=== PATIENT | female | born 1980 | race Caucasian/White ===

== ENCOUNTER 2023-01-05 08:53 | Outpatient (CLI) | payer OTHER, SELFPAY ==
--- NOTE | ~2023-01-05 | MM_ITS ---
EXAMINATION: MM screening michele BI w giuliana HISTORY: Screening mammogram TECHNIQUE: Craniocaudal and mediolateral oblique 3-D tomosynthesis images were obtained and synthetic 2-D images were generated. Bilateral rotated lateral CC views. CAD analysis was submitted and interp reted. COMPARISON: No prior mammogram is available for comparison at this institution. BREAST PARENCHYMAL COMPOSITION: The breasts are heterogeneously dense, which may obscure small masses . FINDINGS: There is no evidence of suspicious mass, calcification, or architectural distortion to sugg est malignancy in either breast. There has been no suspicious interval change. IMPRESSION: 1. No mammographic evidence of malignancy. 2. Recommend routine screening mammography in one year. BI-RADS Category 1: Negative Reviewed, dictated and finalized at location A. START ASSISTANT TEACHER
== END 2023-01-05 08:54 | disposition home or self-care (01) ==
LOC: ANHIMG 08:59
PROVIDERS: Visit Provider Student in an Organized Health Care Education/Training Program
DX: Z12.31 Encounter for screening mammogram for malignant neoplasm of breast (principal)
CPT/HCPCS: 77063; 77067

== ENCOUNTER 2023-01-05 09:57 | Emergency (ER) | payer OTHER, SELFPAY ==
--- NOTE | ~2023-01-05 | XR_ITS ---
Right wrist Technique: PA, oblique, lateral, and ulnar deviation views were obtained. Clinical History: Pain Findings: No acute fracture or dislocation is seen. Osseous alignment is anatomic. Joint spaces are p reserved. Soft tissues are unremarkable. Impression: Unremarkable right wrist radiographs. Reviewed, dictated and finalized at location . LOPMENT DISABILITY SPECIALIST Impression: Unremarkable right wrist radiographs.
[2023-01-05 10:07] VITALS: BP 107/75; PULSE 67; RESP 16; TEMP 36.8; O2SAT 100
--- NOTE | 2023-01-05 10:15 | ED.UPPEXIN ---
HPI - Extremity Injury (Upper) General Chief Complaint: Extremity Injury, Upper Stated Complaint: rt wrist/hand injury Time Seen by Provider: 01/05/23 10:27 Source: patient and RN notes reviewed Mode of arrival: ambulatory Limitations: no limitations History of Present Illness HPI narrative: 42-year-old female presents concern for wrist pain. Reports 6 weeks ago she fell while ice skating injuring her right wrist. Reports her and then the pain increased again recently. Reports she has been using a splint intermittently, occasionally taking ibuprofen and using ice. She reports pain hurts when gripping or moving digits 4 and 5. She denies any swelling, bruising, redness, warmth. MD complaint: injury to: right and wrist Related Data Allergies Allergy/AdvReac Type Severity Reaction Status Date / Time No Known Allergies Allergy Mild Verified 01/05/23 10:05 Review of Systems Review of Systems: CONSTITUTIONAL: Denies malaise, chills, sweats, or fever. SKIN: Denies rash or itching, open skin, laceration, abrasion, redness, warmth, swelling. MUSCULOSKELETAL: Reports right wrist pain NEUROLOGIC: Denies numbness, weakness All systems reviewed & are unremarkable except as noted in HPI and below PMFSH Past Medical History Medical History Abnormal Pap smear of cervix ASCUS NEG HPV 2008 Screening breast examination Social History Social History (Updated 10/31/22 @ 09:31 by Yumiko Galindo [facility]) Smoking status: Never smoker Alcohol intake: current Alcohol use details: social Substance use: never Living arrangements: with family Occupation/Education: occupation Gender identity (if verbalized by the patient): Female Sexual Orientation (if Verbalized by the Patient): Straight or Heterosexual Comments At time of signature, agree with nursing past medical, surgical, social and family history. There is no relevant family history pertinent to the presenting complaint Exam Narrative: GENERAL: Well-appearing, well-nourished, and in no acute distress. HEAD: Normocephalic, atraumatic. EYES: PERRLA, conjunctivae clear NECK: Supple. CHEST: Speaks in full sentences. No respiratory distress. HEART: Regular rate and rhythm. Normal and equal peripheral pulses. EXTREMITIES: Right wrist, hand, digits have normal strength and sensation, normal range of motion. No edema or ecchymosis. 5/5 strength with digit flexion and extension. Normal sensation with sensitivity to light touch and pain. No point tenderness. No open wounds, no skin tenting, no devitalized tissue or atrophy, no trophic changes, no obvious deformity, alignment normal, nearby joints and structures intact. Distal pulses palpable and equal bilaterally, skin warm, dry, pink. Capillary refill less than 3 seconds. SKIN: Warm, dry, no rash. NEURO: Alert and oriented x3. PSYCH: Normal mood and affect Course Course Emergency Course: Patient is aware of diagnosis, understands and agrees to treatment plan. Anticipatory guidance given. Patient agrees to follow-up as directed and is aware of reasons to seek care at the emergency department. Portions of this record may have been created with voice recognition software Level of Care: Express Care Visit Vital Signs Vital signs: Vital Signs Temperature 98.3 F 01/05/23 10:07 Pulse Rate 67 01/05/23 10:07 Respiratory Rate 16 01/05/23 10:07 Blood Pressure 107/75 01/05/23 10:07 Pulse Oximetry 100 01/05/23 10:07 Temperature 98.3 F 01/05/23 10:07 Pulse Rate 67 01/05/23 10:07 Respiratory Rate 16 01/05/23 10:07 Blood Pressure 107/75 01/05/23 10:07 Pulse Oximetry 100 01/05/23 10:07 Reviewed. MDM - Extremity Injury (Upper) MDM Narrative Medical decision making narrative: Patients injury and pain is consistent with musculoskeletal etiology. No signs of neurological or vascular compromise on exam. Compartments and tissues are soft without
== END 2023-01-05 10:43 | disposition home or self-care (01) ==
PROVIDERS: Emergency Provider Nurse Practitioner
DX: S63.501A Unspecified sprain of right wrist, initial encounter (principal); S66.911A Strain of unspecified muscle, fascia and tendon at wrist and hand level, right hand, initial encounter; W19.XXXA Unspecified fall, initial encounter; Y93.21 Activity, ice skating
CPT/HCPCS: 73110; 99213; G0463

== ENCOUNTER 2025-04-02 15:18 | Outpatient (CLI) | payer BC, SELFPAY ==
--- NOTE | ~2025-04-02 | MM_ITS ---
EXAMINATION: MM screening michele BI w giuliana HISTORY: Screening TECHNIQUE: Craniocaudal and mediolateral oblique 3-D tomosynthesis images were obtained and synthetic 2-D images were generated. CAD analysis was submitted and interpreted. COMPARISON: 01/05/2023 BREAST PARENCHYMAL COMPOSITION: Dense: The breasts are heterogeneously dense, which may obscure small masses FINDINGS: There is no evidence of suspicious mass, calcification, or architectural distortion to sugg est malignancy in either breast. There has been no suspicious interval change. IMPRESSION: 1. No mammographic evidence of malignancy. 2. Recommend routine screening mammography in one year. BI-RADS Category 1: Negative Reviewed, dictated and finalized at location A.
--- OUTSIDE RECORDS SUMMARY | 2025-04-02 15:26 | XMS_ITS | Clinical Summary ---
Author Organization [facility] Address [address] [place] [address] Care Team Providers Care Section Supervisor Name Role Phone Carlton Egan MD Primary Care Provider [phone] Allergies Active Allergy Reactions Criticality Noted Date Comments Seasonal Unknown 03/15/2012 Medications No known medications Active Problems No known active problems Immunizations Immunization Administration Dates Next Due Dtap (Generic) 04/25/1984, 0,06/04/1979,04/05/1979,1978 Influenza Adult (Generic) 09/01/2020,10/07/2019 MMR (Generic) 07/08/1993,10/16/1980 Opv 04/25/1984, 0,06/04/1979,04/05/1979,1978 Td 07/08/1993 Social History Tobacco Use Types Packs/Day Years Used Date Smoking Tobacco: Never Smokeless Tobacco: Never Tobacco Cessation:Counseling Given: Not Answered Alcohol Use Standard Drinks/Week Comments Yes 0 (1 standard drink = 0.6 oz pur e alcohol) socially PHQ-2 Answer Date Recorded PHQ-2 Score - If the patient scores above 3, please move on to questions 3-9 0 10/25/2022 Comments No Sex and Gender Information Value Date Recorded Sex Assigned at Not on file Legal Sex Female 5:53 PM CDT Gender Identity Not on file Sexual Orientation Not on file Last Filed Vital Signs Vital Sign Reading Time Taken Comments Blood Pressure 98/70 10/25/2022 9:04 AM TRAILER BODY ASSEMBLER Pulse 77 10/25/2022 8:28 AM TRAILER BODY ASSEMBLER Temperature 36.7 C (98 F) 10/25/2022 8:28 AM TRAILER BODY ASSEMBLER Respiratory Rate 16 10/25/2022 8:28 AM TRAILER BODY ASSEMBLER Oxygen Saturation 97% 10/25/2022 8:28 AM TRAILER BODY ASSEMBLER Inhaled Oxygen Concentration - - Weight 60.8 kg (134 lb) 10/25/2022 8:28 AM TRAILER BODY ASSEMBLER Height 161.3 cm (5' 3.5 ) 10/25/2022 8:28 AM TRAILER BODY ASSEMBLER Body Mass Index 23.36 10/25/2022 8:28 AM TRAILER BODY ASSEMBLER Plan of Treatment Health Maintenance Due Date Last Done Comments Cervical Cancer Screening Pap Smear (Age 30 to 64) Every 3 Years 1978 Colorectal Cancer Screening Colonoscopy (10 Years) 1978 Annual Physical 1981 DTaP, Tdap and Td Vaccines (6 - Tdap) 07/09/1993 07/08/1993, 04/25/1984, 06/11/1980, Additional history exists Hepatitis C 1996 Hepatitis B Vaccines (1 of 3 - 19+ 3-dose series) 1997 Cervical Cancer Screening Pap with HPV Testing (Age 30 to 64) Every 5 Years 2008 Cervical Cancer Screening with HPV 2008 Mammogram Screening 2018 COVID-19 Vaccine (2023- season) 2024 PHQ-2 (Physician [place]) 11/27/2024 Meningococcal B Vaccine Aged Out No l onger eligible based on patient's age to complete this topic Meningococcal Vaccine Aged Out No carlos valentin eligible based on patient's age to complete this topic Pneumococcal Vaccine: Pediatrics (0 to 5 Years) and At-Risk Patients (6 to 49 Years) Aged Out No longer eligible based on patient's age to complete this topic RSV Immunizations Under 20 Months Aged Out No longer eligible based on patient's age to complete this topic Care Teams Section Supervisor Relationship Specialty [place] [address] [place] [address] PCP - General FAMILY PRACTICE 04/05/23
--- OUTSIDE RECORDS SUMMARY | 2025-04-02 15:26 | XMS_ITS | Clinical Summary ---
Author Organization [facility] Address [address] [place] [address] Care Team Providers Care Oracle Application Architect Name Role Phone Unavailable Primary Care Provider Unavailabl e Source Comments [facility],non-owned Affiliates and Associated Physician Practices is amultiple site organization consisting of ambulatory clinics and hospital sitesin [place], [place], [place] and [place]. This disclosure is being madepursuant to the Care Everywhere program and may not contain all information available regarding this patient. Last updated 18.[facility] [employer] Social History Tobacco Use Types Packs/Day Years Used Date Smoking Tobacco: Never Assessed Comments Unknown Sex and Gender Information Value Date Recorded Sex Assigned at Not on file Legal Sex Female 11:28 AM CDT Gender Identity Not on file Sexual Orientation Not on file Plan of Treatment Health Maintenance Due Date Last Done Comments COLOGUARD (AGES 45-75) - COL ON CA SCREENING 1978 COLON MONITORING 1978 COLONOSCOPY - COLON CA SCREENING 1978 CT COLONOGRAPHY - COLON CA SCREENING 1978 Colorectal Cancer Screening 1978 FIT - COLON CA SCREENING 1978 FLEX SIG - COLON CA SCREENING 1978 LIPID TESTING 1978 MAMMOGRAM 1978 HIV SCREENING 1993 HEPATITIS C SCREENING 11/27/1996 DTAP/TDAP/TD VACCINES (1 - Tdap) 1997 HEPATITIS B VACCINE (1 of 3 - 19+ 3-dose series) 1997 COVID-19 VACCINE ( - 2023-2 5 season) 2024 DEPRESSION SCREENING 11/27/2024 INFLUENZA VACCINE (Season Ended) 2025 ZOSTER VACCINE (1 of 2) 2028 HIB VACCINE Aged Out No longer eligi ble based on patient's age to complete this topic HPV VACCINE Aged Out No longer eligi ble based on patient's age to complete this topic MENINGOCOCCAL (Group B) VACC INE SHARED DECISION-MAKING Aged Out No longer eligibl e based on patient's age to complete this topic MENINGOCOCCAL GROUPS A/C/Y/W VACCINE Aged Out No longer eligible b ased on patient's age to complete this topic PNEUMOCOCCAL VACCINE Aged Out No long er eligible based on patient's age to complete this topic [facility] [id number] [facility] [place] [id number] [employer]
--- OUTSIDE RECORDS SUMMARY | 2025-04-02 15:26 | XMS_ITS | Encounter Summary ---
Author Organization [facility] Address [address] [place] [address] Care Team Providers Care Job Developer For Deaf Adults Name Role Phone None, Provider Primary Care Provider Carlton Keene MD Primary Care Provider Encounter Details Date Type Department Care Team (Late st Contact Info) Description 02/26/2001 Abstract [facility] Conversion , Generic Conversion, Social History Tobacco Use Types Packs/Day Years Used Date Smoking Tobacco: Never Assessed Comments Unknown Sex and Gender Information Value Date Recorded Sex Assigned at Not on file Legal Sex Female 5:53 PM CDT Gender Identity Not on file Sexual Orientation Not on file documented as of this encounter Plan of Treatment Not on file documented as of this encounter Visit Diagnoses Not on filedocumented in this encounter Care Teams Job Developer For Deaf Adults Relationship Specialty Start Date End Date None, Provider, PCP - General 08/06/19 04/04/23 [place] [address] [place] [address] PCP - General FAMILY PRACTICE 04/05/23 documented as of this encounter
== END 2025-04-02 15:19 | disposition home or self-care (01) ==
LOC: ANHIMG 15:20
PROVIDERS: Visit Provider Student in an Organized Health Care Education/Training Program
DX: Z12.31 Encounter for screening mammogram for malignant neoplasm of breast (principal)
CPT/HCPCS: 77063; 77067

== ENCOUNTER 2025-04-05 22:23 | Emergency (ER) | payer OTHER, BC, SELFPAY ==
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
[2025-04-05 22:22] VITALS: BP 132/88; PULSE 99; RESP 16; TEMP 36.3; O2SAT 100
--- NOTE | 2025-04-05 22:44 | ECG_ITS ---
Test Date: 2025-04-05 23:28:01 Measurements Intervals [place] Rate: 76 P: 40 W[place]: 165 QRS: 50 QRSD: 86 T: 29 QT: 378 QTc: 426 Interpretive Statements SINUS RHYTHM WITH SINUS ARRHYTHMIA No previous ECG available for comparison Electronically Signed On 04-07-2025 15:21:38 CDT by Darin Vieyra M.D.
[2025-04-05 23:02] LABS: Basophils Percent Auto 0.4 % (0.2-1.2); Eosinophils Absolute Auto 0.1 K/mm3 (0-0.3); Hematocrit 37.2 % (37.0-47.0); Hemoglobin 12.2 g/dL (12.0-15.0); Immature Granulocyte Absolute 0.02 K/mm3 (0.00-0.031); Immature Granulocyte Percent A 0.3 % (0-0.5); Lymphocytes Absolute Auto 2.23 K/mm3 (0.9-3.2); Lymphocytes Percent Auto 31.8 % (18.3-44.2); Mean Corpuscular HGB Conc 32.8 g/dl (32-36); Mean Corpuscular Hemoglobin 28.8 pg (26-34); Mean Corpuscular Volume 87.7 fl (80-100); Mean Platelet Volume 9.6 fl (7.4-10.4); Monocytes Absolute Auto 0.6 K/mm3 (0.1-0.6); Monocytes Percent Auto 8.4 % (2.6-8.5); Neutrophils Absolute Auto 4.1 K/mm3 (1.3-6.7); Neutrophils Percent Auto 58.1 % (45.5-73.1); Platelet Count Result 271 k/mm3 (150-375); Red Blood Count 4.24 M/mm3 (4.2-5.4); Red Cell Distribution Width 13.1 % (11.5-14.5)
[2025-04-05 23:06] LABS: Add Urine Microscopic? NO; Appearance Urine Clear (Clear); Bilirubin Urine Negative (Negative); Blood Urine Negative (Negative); Color Urine Yellow (Yellow); Glucose Urine UA Negative (Negative); Ketones Urine Negative (Negative); Leukocyte Esterase Ur Negative LEU/UL (Negative); Nitrate Urine Negative (Negative); Protein Urine Negative (Negative); Specific Grav Ur 1.011 (1.001-1.035); Urobilinogen Urine 0.2 mg/dL (<2.0); pH Urine 5.5 (5.0-9.0)
[2025-04-05 23:18] LABS: Lactic Acid Reflex 0.8 mmol/L (0.7-2.0)
[2025-04-05 23:19] LABS: Ethanol < 10 mg/dL (<10)
[2025-04-05 23:21] LABS: Amphetamine Screen Urine Negative (Negative); Barbiturate Screen Urine Negative (Negative); Benzodiazepines Screen Urine Negative (Negative); Cannabinoid Screen Urine Negative (Negative); Cocaine Screen Urine Negative (Negative); Methadone Screen Urine Negative (Negative); Opiate Screen Urine Negative (Negative); Phencyclidine Screen Urine Negative (Negative)
[2025-04-05 23:22] LABS: INR 0.9; Prothrombin Time 13.1 Seconds (11.1-14.7)
[2025-04-05 23:24] LABS: BEDSIDEPREGUCG Negative (Negative)
--- OUTSIDE RECORDS SUMMARY | 2025-04-05 23:30 | XMS_ITS | Clinical Summary ---
Author Organization [facility] Address [address] [place] [address] Care Team Providers Care Supercharger Mechanic Name Role Phone Unavailable Primary Care Provider Unavailabl e Source Comments [facility],non-owned Affiliates and Associated Physician Practices is amultiple site organization consisting of ambulatory clinics and hospital sitesin [place], [place], [place] and [place]. This disclosure is being madepursuant to the Care Everywhere program and may not contain all information available regarding this patient. Last updated 18.[facility] [employer] Social History Tobacco Use Types Packs/Day Years [...]
--- OUTSIDE RECORDS SUMMARY | 2025-04-05 23:30 | XMS_ITS | Encounter Summary ---
Author Organization [facility] Address [address] [place] [address] Care Team Providers Care Subassembler Name Role Phone None, Provider Primary Care Provider Carlton Keene MD Primary Care Provider Encounter Details Date Type Department Care Team (Late st Contact Info) Description 02/26/2001 Abstract [facility] Conversion , Generic Conversion, Social History [...] on filedocumented in this encounter Care Teams Subassembler Relationship Specialty Start Date End Date None, Provider, PCP - General 08/06/19 04/04/23 [place] [address] [place] [address] PCP - General FAMILY PRACTICE 04/05/23 documented as of this encounter
--- OUTSIDE RECORDS SUMMARY | 2025-04-05 23:30 | XMS_ITS | Clinical Summary ---
Author Organization [facility] Address [address] [place] [address] Care Team Providers Care Electric Truck Crane Operator Name Role Phone Carlton Egan MD Primary Care Provider Allergies Active Allergy Reactions Criticality Noted Date [...] Comments Blood Pressure 98/70 10/25/2022 9:04 AM BLACK TOP PAVER OPERATOR Pulse 77 10/25/2022 8:28 AM BLACK TOP PAVER OPERATOR Temperature 36.7 C (98 F) 10/25/2022 8:28 AM BLACK TOP PAVER OPERATOR Respiratory Rate 16 10/25/2022 8:28 AM BLACK TOP PAVER OPERATOR Oxygen Saturation 97% 10/25/2022 8:28 AM BLACK TOP PAVER OPERATOR Inhaled Oxygen Concentration - - Weight 60.8 kg (134 lb) 10/25/2022 8:28 AM BLACK TOP PAVER OPERATOR Height 161.3 cm (5' 3.5 ) 10/25/2022 8:28 AM BLACK TOP PAVER OPERATOR Body Mass Index 23.36 10/25/2022 8:28 AM BLACK TOP PAVER OPERATOR Plan of Treatment Health Maintenance Due Date [...] COVID-19 Vaccine (2023- season) 2024 PHQ-2 (Physician [place]) 11/27/2024 Meningococcal B Vaccine Aged Out No [...] age to complete this topic Care Teams Electric Truck Crane Operator Relationship Specialty Start [place] [address] [place] [address] PCP - General FAMILY PRACTICE 04/05/23
[2025-04-05 23:31] VITALS: BP 119/80; PULSE 92; RESP 16; O2SAT 99
[2025-04-05 23:47] LABS: Creatine Kinase 68 U/L (30-135); Lipase 68 U/L (23-300); Magnesium 2.1 mg/dL (1.6-2.3); Phosphorus 4.1 mg/dL (2.5-4.5)
[2025-04-05 23:59] LABS: NT Pro B Type Natriuretic Pept 34 pg/mL (19.9-100); Troponin I < 0.012 ng/mL (0.000-0.034)
[2025-04-06 00:01] VITALS: BP 117/88; PULSE 89; RESP 16; O2SAT 98
[2025-04-06 00:46] VITALS: BP 117/73; PULSE 91; RESP 16; O2SAT 98
[2025-04-06 02:06] LABS: Alanine Aminotransferase 23 U/L (6-35); Albumin Level 4.4 g/dL (3.5-5.1); Alkaline Phosphatase 66 U/L (38-126); Anion Gap 9 mmol/L (4-12); Aspartate Amino Transferase 34 U/L (14-36); Bilirubin,Total 0.3 mg/dL (0.2-1.3); Blood Urea Nitrogen 14 mg/dL (7-17); Calcium 9.3 mg/dL (8.4-10.2); Carbon Dioxide 26 mmol/L (22-30); Chloride 101 mmol/L (98-107); Estimated CRCL calculation 77 ml/min; Glucose 101 mg/dL (65-110); Potassium 3.6 mmol/L (3.4-5.0); Sodium 136 mmol/L (137-145)
[2025-04-06 02:17] LABS: Estimated Glomerular Filt Rate > 60
[2025-04-06 02:22] LABS: Estimated CRCL calculation 75 ml/min; Estimated Glomerular Filt Rate > 60
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
[2025-04-06] MEDS: KETOROLAC 15 MG/ML VIAL (*BKC) IV PUSH (04:16)
[2025-04-06] MEDS: ACETAMINOPHEN 500 MG TABLET 1000 MG PO (04:17)
== END 2025-04-06 04:35 | disposition home or self-care (01) ==
PROVIDERS: Emergency Provider Emergency Medicine
DX: S39.91XA Unspecified injury of abdomen, initial encounter (principal); V43.63XA Car passenger injured in collision with pick-up truck in traffic accident, initial encounter
CPT/HCPCS: 36415; 70450; 71045; 71260; 72125; 72170; 74177; 80053; 80307; 81003; 81025; 82077; 82550; 83605; 83690; 83735; 83880; 84100; 84484; 85025; 85610; 85730; 93005; 96374; 99284; A9270; J1885; Q9967